=== PATIENT | male | born 1985 | race Caucasian/White ===

== ENCOUNTER 2019-02-11 01:02 | Emergency (ER) | payer OTHER ==
[2019-02-11] MEDS ORDERED: NS 1,000 ML IV ONE ×2 (01:08→01:21)
--- NOTE | 2019-02-11 01:08 | EDPHY ---
H & P Stated Complaint: SVT, took metoprolo at 1217 Time Seen by Provider: 02/11/19 01:08 HPI/ROS: HPI CHIEF COMPLAINT: SVT HISTORY OF PRESENT ILLNESS: Patient very pleasant 33-year-old male, longstanding history of SVT and has had this since he has age 14, presents emergency room with a fast heart rate. Denies any chest pain or shortness of breath. He states he was drinking multiple glasses of wine tonight he had 3. No vomiting no diarrhea. He states he is not as hydrate easy normally is. Around midnight he developed SVT with a fast heart rate. He took a home dose of metoprolol 50 mg however this did not help. He waited a prolonged period time in the waiting room and then decided the check-in. Upon arrival 2 vagal maneuvers were performed. However unable to slow down. His heart rate is in the 150s. Past Medical History: SVT Past Surgical History: No recent surgical history Social History: Denies drugs or tobacco. Occasional alcohol use 3 glasses of wine tonight. Family History: Noncontributory ROS REVIEW OF SYSTEMS: 10 Systems were reviewed and negative with the exception of the elements mentioned in the history of present illness. Exam Constitutional triage nursing summary reviewed, vital signs reviewed, awake/ alert. Tachycardia at triage 150s. Eyes normal conjunctivae and sclera, EOMI, PERRLA. HENT normal inspection, atraumatic, moist mucus membranes, no epistaxis, neck supple/ no meningismus, no raccoon eyes. Respiratory clear to auscultation bilaterally, normal breath sounds, no respiratory distress, no wheezing. Cardiovascular tachycardia, regular rhythm, no murmur, no edema, distal pulses normal. Gastrointestinal soft, non-tender, no rebound, no guarding, normal bowel sounds, no distension, no pulsatile mass. Genitourinary no CVA tenderness. Musculoskeletal no midline vertebral tenderness, full range of motion, no calf swelling, no tenderness of extremities, no meningismus, good pulses, neurovascularly intact. Skin pink, warm, & dry, no rash, skin atraumatic. Neurologic awake, alert and oriented x 3, AAOx3, moves all 4 extremities equally, motor intact, sensory intact, CN II-XII intact, normal cerebellar, normal vision, normal speech. Psychiatric normal mood/affect. Heme/Lymph/Immune no lymphadenopathy. Differential Diagnosis: Includes but is not limited to in a particular order SVT, AVRNT, V-tach, VFib, hypertrophic cardiomyopathy, ACS, pneumonia, PE Medical Decision Making: Plan for this patient IV establishment with IV fluid bolus, basic electrolytes, EKG, it vagal maneuvers, and re-evaluate Re-evaluation: EKG interpretation by me on record in [employer] [facility] system. Impression time of EKG 1:11 a.m., SVT rate of 162 without any signs of acute ischemia. Patient re-evaluated this time 1:32 a.m. Still heart rate in the 150s. Multiple vagal maneuvers were tried without success. Patient declining refusing adenosine. Plan will be for IV Ativan for anxiety 0.5 mg, and IV metoprolol 5 mg and re- evaluate. 2:17 a.m., 2 doses of metoprolol were used, as well as IV Ativan, however the patient persisted be in SVT in the 160s. Currently heart rate 162. I had a long discussion with him about adenosine. He declined this multiple times however has finally agreed for it. Patient be moved from ER room 12 to ER room 2 and set up on clinical research monitor, pulse ox, end-tidal, suction BVM will be set up and patient will get 6 mg IV adenosine push. Chemical Cardioversion Procedure: Time out was obtained. Patient Verbal Consent obtained to Chemical Cardioversion with Adenosine. Patient was placed on full clinical research monitor. End-tidal was in place and pulse ox. Suction and BV were set up at bedside. 12 lead rhythm strip was run. Patient had 6 mg of IV adenosine pushed through his right AC catheter. His heart rate was 160s before giving adenosine, after adenosine is heart rate is 102 at this time. He had a brief pause with adenosine and did well. There were no complications. Patient tolerated this well. Rhythm strip was obtained without any underlying AFib or a flutter seen. EKG interpretation by me on record in [employer] system. Impression time of EKG 2:35 a.m., this is sinus rhythm rate of 97 without any signs of acute ischemia prolonged intervals no signs of WPW or Brugada. Unremarkable nonischemic EKG. This EKG is obtained after chemical cardioversion of 6 mg IV adenosine push. Patient has no chest pain or shortness of breath with this EKG 0345: Patient has done well. No chest pain or shortness of breath. Ambulated well to the bathroom without difficulty p.o. Challenge denies any chest pain or shortness of breath. His request a discharge. Return precautions discussed with the patient and at bedside. They are comfortable with him going home. Source: Patient - Personal History Current Tetanus Diphtheria and Acellular Pertussis (TDAP): Yes - Medical/Surgical History Hx Asthma: Yes Hx Chronic Respiratory Disease: No Hx Diabetes: No Hx Cardiac Disease: Yes Hx Renal Disease: No Hx Cirrhosis: No Hx Alcoholism: No Hx HIV/AIDS: No Hx Splenectomy or Spleen Trauma: No Other PMH: HX: SVT, ASTHMA, ANX, TONSILECTOMY - Social History Smoking Status: Never smoked Constitutional: Initial Vital Signs Temperature (C) 36.8 C 02/11/19 01:04 Heart Rate 145 H 02/11/19 01:04 Respiratory Rate 19 02/11/19 01:04 Blood Pressure 131/95 H 02/11/19 01:04 O2 Sat (%) 94 02/11/19 01:04 O2 Delivery Mode Room Air Allergies/Adverse Reactions: amoxicillin [Amoxicillin] Allergy (Verified 02/11/19 01:03) Home Medications: Medication Instructions Recorded Xanax 12/23/13 Metoprolol Tartrate 02/11/19 Medical Decision Making - Data Points Laboratory Results: Laboratory Results 02/11/19 01:15 02/11/19 01:15 02/11/19 02/11/19 02/11/19 01:22 01:15 01:15 WBC 8.24 10^3/uL 10^3/uL (3.80-9.50) RBC 5.55 10^6/uL 10^6/uL (4.40-6.38) Hgb 16.7 g/dL g/dL (13.7-17.5) Hct 47.0 % % (40.0-51.0) MCV 84.7 fL fL (81.5-99.8) MCH 30.1 pg pg (27.9-34.1) MCHC 35.5 g/dL g/dL (32.4-36.7) RDW 12.3 % % (11.5-15.2) Plt Count 268 10^3/uL 10^3/uL (150-400) MPV 9.2 fL fL (8.7-11.7) Neut % (Auto) 54.2 % % (39.3-74.2) Lymph % (Auto) 31.8 % % (15.0-45.0) [place] % (Auto) 9.2 % % (4.5-13.0) Eos % (Auto) 3.4 % % (0.6-7.6) Baso % (Auto) 1.0 % % (0.3-1.7) Nucleat RBC Rel Count 0.0 % % (0.0-0.2) Absolute Neuts (auto) 4.47 10^3/uL 10^3/uL (1.70-6.50) Absolute Lymphs (auto) 2.62 10^3/uL 10^3/uL (1.00-3.00) Absolute Monos (auto) 0.76 10^3/uL 10^3/uL (0.30-0.80) Absolute Eos (auto) 0.28 10^3/uL 10^3/uL (0.03-0.40) Absolute Basos (auto) 0.08 10^3/uL 10^3/uL (0.02-0.10) Absolute Nucleated RBC 0.00 10^3/uL 10^3/uL (0-0.01) Immature Gran % 0.4 % % (0.0-1.1) Immature Gran # 0.03 10^3/uL 10^3/uL (0.00-0.10) Sodium 135 mEq/L mEq/L (135-145) Potassium 4.0 mEq/L mEq/L (3.5-5.2) Chloride 104 mEq/L mEq/L (97-110) Carbon Dioxide 20 mEq/l L mEq/l (22-31) Anion Gap 11 mEq/L mEq/L (6-14) BUN 16 mg/dL mg/dL (7-23) Creatinine 0.8 mg/dL mg/dL (0.7-1.3) Estimated GFR > 60 Glucose 139 mg/dL H mg/dL (70-100) Calcium 8.9 mg/dL mg/dL (8.5-10.4) POC Troponin I 0.00 ng/mL ng/mL (0.00-0.08) Medications Given: Discontinued Medications Adenosine (Adenosine) 6 mg IVP EDNOW ONE Stop: 02/11/19 02:17 Last Admin: 02/11/19 02:26 Dose: 6 mg Sodium Chloride (Ns) 1,000 mls @ 0 mls/hr IV EDNOW ONE; Wide Open PRN Reason: Protocol Stop: 02/11/19 01:09 Last Admin: 02/11/19 01:18 Dose: 1,000 mls Sodium Chloride (Ns) 1,000 mls @ 0 mls/hr IV EDNOW ONE; Wide Open PRN Reason: Protocol Stop: 02/11/19 01:22 Last Admin: 02/11/19 01:22 Dose: 1,000 mls Lorazepam (Ativan Injection) 0.5 mg IVP EDNOW ONE Stop: 02/11/19 01:33 Last Admin: 02/11/19 01:37 Dose: 0.5 mg Metoprolol Tartrate (Lopressor Injection) 5 mg IVP EDNOW ONE Stop: 02/11/19 01:33 Last Admin: 02/11/19 01:37 Dose: 5 mg Metoprolol Tartrate (Lopressor Injection) 5 mg IVP EDNOW ONE Stop: 02/11/19 02:00 Last Admin: 02/11/19 02:03 Dose: 5 mg Point of Care Test Results: Chemistry 02/11/19 01:22 POC Troponin I 0.00 ng/mL ng/mL (0.00-0.08) Departure - Departure Disposition: Home, Routine, Self-Care Clinical Impression: SVT (supraventricular tachycardia) Condition: Good Instructions: Supraventricular Tachycardia (ED), Tachycardia (ED) Additional Instructions: 1. Stay well-hydrated and rest. 2. I do encourage you to follow-up with Cardiology. 3. Return to the emergency room if you have worsening symptoms this includes fast heart rate, chest pain, shortness of breath, not doing well. Referrals: Deonte Pena MD [Primary Care Provider] - As per Instructions Leesa Baron MD [Medical Doctor] - As per Instructions
[2019-02-11] MEDS ORDERED: ADENOSINE 6 MG/2 ML VIAL ONE (01:17)
[2019-02-11 01:22] LABS: PLATELET COUNT 268 10^3/uL (150-400)
[2019-02-11] MEDS ORDERED: METOPROLOL TARTRATE 5 MG/5 ML INJ IVP ONE ×2 (01:32→01:59)
[2019-02-11] MEDS ORDERED: LORazepam 2 MG/ML INJ IVP ONE (01:32)
[2019-02-11] MEDS ORDERED: ADENOSINE 6 MG/2 ML VIAL IVP ONE (02:16)
[2019-02-11 03:42] VITALS: BP 105/66
--- NOTE | 2019-02-13 08:04 | CPEKG ---
Test Reason : OPEN Blood Pressure : / mmHG Vent. Rate : 162 BPM Atrial Rate : 000 BPM P-R Int : 000 ms QRS Dur : 081 ms QT Int : 285 ms P-R-T Axes : 000 -12 006 degrees QTc Int : 469 ms Sinus tachycardia Confirmed by Vinayak Roca ([id number]) on 02/13/2019 8:03:55 AM Referred By: Vinayak Roca Confirmed By:Vinayak Roca
--- NOTE | 2019-02-13 08:04 | CPEKG ---
Test Reason : OPEN Blood Pressure : / mmHG Vent. Rate : 097 BPM Atrial Rate : 097 BPM P-R Int : 163 ms QRS Dur : 079 ms QT Int : 343 ms P-R-T Axes : 039 008 012 degrees QTc Int : 436 ms Sinus rhythm Confirmed by Vinayak Roca ([id number]) on 02/13/2019 8:03:54 AM Referred By: Vinayak Roca Confirmed By:Vinayak Roca
== END 2019-02-11 03:49 | disposition home or self-care (01) ==
DX: I47.1 Supraventricular tachycardia (principal); E86.9 Volume depletion, unspecified
CPT/HCPCS: 84484-ER; 96374; J0153; J2060